=== PATIENT | female | born 1940 | race Caucasian/White ===

== ENCOUNTER 2020-05-13 14:48 | Day surgery (SDC) | payer MEDICARE, SELFPAY ==
[2020-05-13] VITALS (11 sets, daily range): BP systolic 102–142; BP diastolic 53–76; PULSE 76–112; RESP 12–20; TEMP 36.2–36.6; O2SAT 92–97; BMI 33.3
[2020-05-13 15:31] LABS: Basophils # 0.1 K/mm3 (0-0.2); Basophils % 1.1 % (0.1-2.0); Eosinophils % 0.4 % (0.1-12.0); Hematocrit 46.1 % (37.0-47.0); Hemoglobin 15.4 g/dL (12.2-16.2); Lymphocytes # 2.5 K/mm3 (0.7-4.5); Lymphocytes % 24.4 % (10-50); Mean Corpuscular HGB Conc 33.4 g/dL (31.8-35.4); Mean Corpuscular Hemoglobin 31.8 pg (27.0-31.2); Mean Corpuscular Volume 95.4 fl (81-99); Mean Platelet Volume 8.1 fl (7.4-10.4); Monocytes # 0.5 K/mm3 (0.1-1.0); Monocytes % 4.6 % (1.7-9.3); Neutrophils % 69.5 % (37.0-80.0); Platelet Count 317 K/mm3 (142-424); Red Blood Count 4.83 M/mm3 (4.20-5.40); Red Cell Distribution Width 13.5 % (11.5-17.5); White Blood Count 10.1 K/mm3 (4.8-10.8)
[2020-05-13 15:42] LABS: Chloride 99 mmol/L (98-107); Potassium 3.4 mmoL/L (3.5-5.1); Sodium 136 mmol/L (136-145)
[2020-05-13 15:44] LABS: Alanine Aminotransferase 32 U/L (12-78); Aspartate Amino Transferase 40 U/L (14-36); Blood Urea Nitrogen 22 mg/dl (7-17); Creatinine Clearance Estimated 56 mL/min (50-200); Estimated Glomerular Filt Rate 43 ml/min (>60); GFR (African American) 52 ML/MIN (>60)
[2020-05-13 15:45] LABS: Albumin Level 4.7 g/dl (3.5-5.0); Albumin/Globulin Ratio 1.6 (1.1-1.8); Alkaline Phosphatase 134 U/L (38-126); Anion Gap 15.4 mEq/L (5-15); Bilirubin,Total 0.8 mg/dl (0.2-1.3); Calcium 10.4 mg/dl (8.4-10.2); Carbon Dioxide 25 mmol/L (22.0-30.0); Glucose 120 mg/dl (74-100); Total Protein,Serum 7.7 g/dl (6.3-8.2)
[2020-05-13 15:52] LABS: Coronavirus 19 IgG Antibody Negative (Negative); Coronavirus 19 IgM Antibody Negative (Negative)
--- NOTE | 2020-05-13 16:19 | P.OP_ITS ---
Date of procedure: 05/13/20 Pre-op Diagnosis:: Thrombosed hemorrhoid Post-op Diagnosis:: Same Procedure performed:: Hemorrhoidectomy Surgeon:: Darren Padron MD SUPER[employer]:: Albaro Retana Anesthesia: LMA Estimated blood loss (mL): 25 Clinical Note:: Patient is an 79-year-old female from [facility]. She states that she has a longstanding history of essentially asymptomatic hemorrhoids for many many years. However, yesterday she states that she had symptoms consistent with prolapse and acute severe pain and swelling. She saw Dr. Solis in the office in [place]. She was scheduled for urgent outpatient surgical evaluation. She was seen in the office this afternoon. She had what appeared to be a large acute on chronic thrombosed hemorrhoid which was very tender. Due to the large size and symptomatology plan was made for hemorrhoidectomy under anesthesia. Operative findings:: She had what appeared to be large prolapsed acute on chronic thrombosed hemorrhoid. Operative note:: Patient was taken to the operating room. She was positioned in a supine position. General anesthesia was induced via LMA. She was prepped and draped in the standard surgical fashion. In the left posterior lateral location there was a very large, several centimeter, prolapsed hemorrhoidal mass. This appeared to be consistent with prolapsed hemorrhoid with acute on chronic thrombosis. Plan was made for excision as a simple hemorrhoidectomy. Local anesthetic was infiltrated in the adjacent anal Derm. Sharp elliptical incision was made of the anal Derm around the hemorrhoidal mass . Metzenbaum dissection was used to dissected the mass free. It was sent off as a specimen. Additional local anesthetic was infiltrated. Anoderm was closed with a running locking 2-0 chromic suture oversewn with simple 2-0 chromic. Additional local anesthetic was infiltrated. Gelfoam roll soaked in topical anesthesia was inserted into the anorectal vault. Absorbent dressing was applied. Condition: stable Disposition: PACU Specimens:: Hemorrhoid Complications:: None immediately apparent
--- NOTE | 2020-05-13 16:23 | P.PN_ITS ---
[facility] Anesthesia Checklist - Patient Identification Patient Identification: Arm Band, Verbal (Name & ) - Structural Data Admitted From: Home Planned Operative Procedure/s: Hemorrhoidectomy Consent for Planned Operative Procedure(s) Verified: Yes Verified Documents: Surgical Consent, History and Physical - NPO Status Verified Time NPO: 09:00 - Chart Verification Results Verified: CBC, BMP - Additional verifications Anesthesia Reactions: Yes (nausea) Hx Blood Transfusions: Yes Blood Transfusion Reaction: No - Airway Assessment C-Spine Mobility Assessed: Yes (MP 2) TMJ Mobility Assessed: Yes Dentition: Dentures-good fit (removed) - Neurological Assessment Level of Consciousness: Awake, Alert, Appropriate, Follows Commands Hx Seizures: No Numbness or tingling in extremities: No - Anesthesia Plan Anesthesia Risk discussed: Yes Anesthesia Plan: Verified ASA Class: III (Emergent) Anesthesia Type: General [facility] History I have reviewed the patient's past medical history: Yes Medical History: Reports:: Asthma, Hypertension Denies:: Cancer, Diabetes Mellitus Type 1, Diabetes Mellitus Type 2, Internal Pacemaker, MRSA, Seizures *Have you ever received a pneumonia vaccine?: Yes *Have you received a flu vaccine this season?: Yes Other Medical History: Denies: Blood Transfusion Reaction Comment:: obesity Anesthesia experience/problems:: PONV Laterality Cases: Bilateral: Tonsillectomy Other Surgeries: No: Pacemaker Amputation: No Fractures: No - *Social History Last grade of school completed: High school graduate Smoking Status: Never smoker Alcohol Intake: never Substance Use Type: denies use *Occupational Status:: retired Housing: house Household Members: family *Travel in the last 8 weeks: None Family Hx:: No significant family history
--- NOTE | 2020-05-13 16:26 | HMH.ANESI ---
[facility] Anesthesia Record Part I Intake, IV Amount: 250 Estimated blood loss (mL): 5 Urine output (mL): 0 (NM) Blood Products used (#): none Blood Pressure: 115/61 SaO2: 92 Pulse Rate: 87 Respiratory Rate: 12 Temperature: 97.6 F Patient is:: Awake, Drowsy, Stable Stable to PACU at:: 16:20
--- NOTE | 2020-05-13 18:07 | P.PN_ITS ---
[facility] Anesthesia Record Part II Discharge Time: 16:50 Destination: Surgical Day Care (OP Surgery) PACU nurse assessment reviewed?: Yes Patient Condition:: Good Anesthesia Complications:: None Swallowing reflex intact?: Yes Cyanosis?: No Blood Pressure: 109/53 Pulse Rate: 82 Temperature: 97.8 F Mental Status: Alert & Oriented Pain level:: 0 Nausea and/or vomitting:: None Intake, IV Amount: 0
== END 2020-05-13 17:20 | disposition home or self-care (01) ==
PROVIDERS: PCP Family Medicine; Visit Provider Surgery
PROC: (CPT 46930; principal; 2020-05-13 15:00)
DX: K64.5 Perianal venous thrombosis (principal); J45.909 Unspecified asthma, uncomplicated; I10 Essential (primary) hypertension; Z79.899 Other long term (current) drug therapy; Z90.89 Acquired absence of other organs
CPT/HCPCS: 46930; 80053; 85025; 86328; 88304; 96374; J2405

== ENCOUNTER → 2021-02-16 13:14 | Outpatient (CLI) | payer MEDICARE, SELFPAY | PROVIDERS: PCP Family Medicine; Visit Provider Nurse Practitioner | DX: Z20.822 Contact with and (suspected) exposure to COVID-19 (principal) | CPT/HCPCS: C9803; U0003; U0005 ==

== ENCOUNTER → 2022-05-02 14:32 | Outpatient (CLI) | payer MEDICARE, SELFPAY ==
[2022-05-02 20:25] LABS: Basophils # 0.1 K/mm3 (0-0.2); Basophils % 1.1 % (0.1-2.0); Eosinophils # 0.1 K/mm3 (0.0-0.4); Eosinophils % 0.7 % (0.1-12.0); Hematocrit 45.5 % (37.0-47.0); Hemoglobin 14.7 g/dL (12.2-16.2); Lymphocytes # 1.8 K/mm3 (0.7-4.5); Mean Corpuscular HGB Conc 32.4 g/dL (31.8-35.4); Mean Corpuscular Volume 95.9 fl (81-99); Mean Platelet Volume 9.7 fl (7.4-10.4); Monocytes # 0.5 K/mm3 (0.1-1.0); Monocytes % 6.7 % (1.7-9.3); Neutrophils # 4.8 K/mm3 (1.8-7.8); Neutrophils % 66.6 % (37.0-80.0); Platelet Count 376 K/mm3 (142-424); Red Blood Count 4.74 M/mm3 (4.20-5.40); Red Cell Distribution Width 12.8 % (11.5-17.5); White Blood Count 7.2 K/mm3 (4.8-10.8)
[2022-05-02 20:29] LABS: Alanine Aminotransferase 39 U/L (12-78); Albumin Level 4.5 g/dl (3.5-5.0); Albumin/Globulin Ratio 1.7 (1.1-1.8); Alkaline Phosphatase 182 U/L (38-126); Aspartate Amino Transferase 49 U/L (14-36); Bilirubin,Total 0.4 mg/dl (0.2-1.3); Blood Urea Nitrogen 31 mg/dl (7-17); Calcium 10.1 mg/dl (8.4-10.2); Carbon Dioxide 29 mmol/L (22.0-30.0); Chloride 101 mmol/L (98-107); Chol/HDL Ratio 4.2 (1-3.5); Cholesterol 239 mg/dl (140-200); Estimated Glomerular Filt Rate 36 ml/min (>60); GFR (African American) 43 ML/MIN (>60); Globulin 2.7 g/dL (1.3-3.2); Glucose 97 mg/dl (74-100); HDL Cholesterol 57 mg/dl (40-60); Sodium 138 mmol/L (136-145); Total Protein,Serum 7.2 g/dl (6.3-8.2); Triglycerides 279 mg/dl (30-150); VLDL Cholesterol 56 mg/dL (0-40)
[2022-05-02 20:40] LABS: Direct LDL Cholesterol 120.24 mg/dL (100-129)
[2022-05-02 20:49] LABS: Creatinine,Urine Random 189 mg/dL (Not Estab.)
[2022-05-02 20:50] LABS: Microalbumin/Creatinine Ratio 3.2
[2022-05-02 21:00] LABS: Thyroid Stimulating Hormone 2.01 uIU/mL (0.465-4.68)
== END ==
PROVIDERS: PCP Nurse Practitioner; Visit Provider Nurse Practitioner
DX: I10 Essential (primary) hypertension (principal); I49.9 Cardiac arrhythmia, unspecified
CPT/HCPCS: 80053; 80061; 82043; 82570; 84443; 85025

== ENCOUNTER → 2022-05-03 08:33 | Outpatient (CLI) | payer MEDICARE, SELFPAY ==
--- NOTE | 2022-05-03 08:45 | ECG_ITS ---
APPROVED REPORT Exam: Resting ECG HR:86 bpm ECG Measurements Heart Rate 86 AXES NC 155 P -17 QRSd 106 QRS -15 QT 378 T 21 QTc 422 Conclusion SINUS RHYTHM WITH SINUS ARRHYTHMIA NORMAL ECG UNCONFIRMED REPORT Electronically signed by : Mookie Garcia MD 05/03/2022 19:54:05
--- NOTE | 2022-05-03 08:51 | XR_ITS ---
FINAL REPORT CLINICAL HISTORY: arrhythmia FINDINGS: Two views of the chest were obtained. The heart size and pulmonary vascularity are within normal limits. The mediastinum is normal. No acute pulmonary abnormality is identified. There is no pneumothorax. There is rightward curvature of the thoracic spine. IMPRESSION: No active cardiopulmonary disease. Reviewed, Interpreted and Dictated by Darren Kamara III, MD Transcribed by Alejandra Chavez Authenticated and [facility]
== END ==
PROVIDERS: PCP Nurse Practitioner; Visit Provider Nurse Practitioner
DX: I10 Essential (primary) hypertension (principal); I49.9 Cardiac arrhythmia, unspecified
CPT/HCPCS: 71046; 93005

== ENCOUNTER → 2022-09-21 23:22 | Outpatient (CLI) | payer MEDICARE, SELFPAY | PROVIDERS: PCP Nurse Practitioner; Visit Provider Nurse Practitioner | DX: R30.0 Dysuria (principal) | CPT/HCPCS: 87086 ==

== ENCOUNTER → 2022-10-05 23:30 | Outpatient (CLI) | payer MEDICARE, SELFPAY ==
[2022-10-05 19:11] LABS: Alanine Aminotransferase 33 U/L (12-78); Albumin Level 4.2 g/dl (3.5-5.0); Albumin/Globulin Ratio 1.4 (1.1-1.8); Alkaline Phosphatase 162 U/L (38-126); Anion Gap 16.4 mEq/L (5-15); Aspartate Amino Transferase 42 U/L (14-36); Bilirubin,Total 0.3 mg/dl (0.2-1.3); Blood Urea Nitrogen 19 mg/dl (7-17); Calcium 9.4 mg/dl (8.4-10.2); Carbon Dioxide 30 mmol/L (22.0-30.0); Chloride 94 mmol/L (98-107); Estimated Glomerular Filt Rate 60 ml/min (>60); GFR (African American) 72 ML/MIN (>60); Globulin 2.9 g/dL (1.3-3.2); Glucose 104 mg/dl (74-100); Potassium 4.4 mmoL/L (3.5-5.1); Sodium 136 mmol/L (136-145); Total Protein,Serum 7.1 g/dl (6.3-8.2)
[2022-10-05 19:46] LABS: Thyroid Stimulating Hormone 2.17 uIU/mL (0.465-4.68)
[2022-10-05 19:47] LABS: Basophils # 0.1 K/mm3 (0-0.2); Eosinophils # 0.1 K/mm3 (0.0-0.4); Eosinophils % 0.8 % (0.1-12.0); Hematocrit 45.4 % (37.0-47.0); Hemoglobin 14.4 g/dL (12.2-16.2); Lymphocytes # 1.6 K/mm3 (0.7-4.5); Lymphocytes % 22.9 % (10-50); Mean Corpuscular HGB Conc 31.7 g/dL (31.8-35.4); Mean Corpuscular Hemoglobin 30.8 pg (27.0-31.2); Mean Corpuscular Volume 97.2 fl (81-99); Mean Platelet Volume 10.1 fl (7.4-10.4); Monocytes # 0.4 K/mm3 (0.1-1.0); Monocytes % 6.1 % (1.7-9.3); Neutrophils # 4.7 K/mm3 (1.8-7.8); Neutrophils % 69.2 % (37.0-80.0); Platelet Count 451 K/mm3 (142-424); Red Blood Count 4.68 M/mm3 (4.20-5.40); Red Cell Distribution Width 12.8 % (11.5-17.5); White Blood Count 6.8 K/mm3 (4.8-10.8)
[2022-10-05 20:04] LABS: Vitamin B12 656 pg/mL (239-931)
== END ==
PROVIDERS: PCP Nurse Practitioner; Visit Provider Nurse Practitioner
DX: I10 Essential (primary) hypertension (principal); R26.89 Other abnormalities of gait and mobility; R30.0 Dysuria; N30.01 Acute cystitis with hematuria
CPT/HCPCS: 80053; 82607; 84443; 85025; 87086

== ENCOUNTER → 2022-10-18 10:12 | Outpatient (CLI) | payer MEDICARE, SELFPAY | PROVIDERS: PCP Nurse Practitioner; Visit Provider Nurse Practitioner | DX: R30.0 Dysuria (principal) | CPT/HCPCS: 87086 ==

== ENCOUNTER 2023-01-25 18:04 | Emergency (ER) | payer MEDICARE, SELFPAY ==
[2023-01-25 18:05] VITALS: BP 173/96; PULSE 117; RESP 18; TEMP 36.6; O2SAT 95; BMI 34.4
[2023-01-25 18:11] VITALS: BP 173/96; PULSE 109; O2SAT 97
[2023-01-25 18:31] VITALS: BP 149/80; PULSE 91; O2SAT 96
--- NOTE | 2023-01-25 19:01 | XR_ITS ---
PROCEDURE INFORMATION: Exam: XR Left Knee Exam date and time: 01/25/2023 7:02 PM Age: 82 years old Clinical indication: Injury or trauma; Fall; Laceration; Patella or knee; Left; Without foreign body; Additional info: Knee injury TECHNIQUE: Imaging protocol: Radiologic exam of the left knee. Views: 3 views. COMPARISON: No relevant prior studies available. FINDINGS: Bones/joints: Tricompartmental joint space narrowing and osteophyte formation. No acute fracture or dislocation. Tibial spine peaking. Soft tissues: Soft tissue swelling anterior calf. Small soft tissue defect in the prepatellar region. IMPRESSION: No acute fracture or dislocation.
--- NOTE | 2023-01-25 19:03 | HMH.EDGENADL ---
Discharge Plan Disposition Patient Disposition: Home, Self-Care Prescriptions Prescriptions: No Action albuterol sulfate 90 mcg/actuation HFA aerosol inhaler 90 mcg INHALATION NEEDED PRN (Reason: COPD) montelukast 10 mg tablet See Rx Instructions .ROUTE .COMPLEX Qty: 90 3RF Dose Instruction: TAKE 1 TABLET BY MOUTH DAILY FOR ALLERGIES SYMPTOMS Rx Instructions: TAKE 1 TABLET BY MOUTH DAILY FOR ALLERGIES SYMPTOMS metolazone 5 mg tablet See Rx Instructions .ROUTE .COMPLEX Qty: 90 3RF Dose Instruction: TAKE 1 TABLET BY MOUTH DAILY FOR EDEMA Rx Instructions: TAKE 1 TABLET BY MOUTH DAILY FOR EDEMA fosinopril 20 mg tablet See Rx Instructions .ROUTE .COMPLEX Qty: 90 3RF Dose Instruction: TAKE 1 TABLET BY MOUTH DAILY FOR HIGH BLOOD PRESSURE Rx Instructions: TAKE 1 TABLET BY MOUTH DAILY FOR HIGH BLOOD PRESSURE Referrals Follow up/Referrals: Elissa Rivas APRN [Primary Care Provider] - See instructions Activity Restrictions/Add. Instructions Additional Instructions/Restrictions: Have your sutures removed in 7 to 10 days return with any spreading redness or pus coming from the wound or other concerns. Clinical Impressions Clinical Impression: Laceration of knee, left, Contusion of knee, left Instructions Patient Instructions: DI for Laceration Repair Discharge ED Provider: Zeinab Harry General Adult HPI General Chief complaint: Wound/Laceration Stated complaint: AO fall 01/25, left knee pain Time Seen by Provider: 01/25/23 18:54 Mode of Arrival: Wheelchair Source of Information: Patient Limitations: No Limitations Description of Symptoms (Recalled from ER Triage Doc. by RN): Patient reports slipping on wet grass at 12 noon today and falling onto her left knee causing a laceration. Denies LOC. History of Present Illness HPI narrative: 82-year-old female here with a left knee laceration and knee injury after a mechanical fall earlier today. Denies any injuries elsewhere she has been able to walk on it without difficulty with a full range of motion tetanus is not up-to-date. No injuries elsewhere. Related Data Home Medications Medication Instructions Recorded Confirmed albuterol sulfate 90 mcg/actuation 90 mcg inhalation NEEDED PRN 05/13/20 10/28/22 aerosol inhaler COPD Previous Rx's Medication Instructions Recorded montelukast 10 mg tablet See Rx Instructions .Route 10/18/22 .COMPLEX #90 tabs fosinopril 20 mg tablet See Rx Instructions .Route 01/17/23 .COMPLEX #90 tabs metolazone 5 mg tablet See Rx Instructions .Route 01/17/23 .COMPLEX #90 tabs Allergies Allergy/AdvReac Type Severity Reaction Status Date / Time penicillin G [PENICILLIN G] Allergy Mild Verified 10/28/22 09:42 nitrofurantoin Allergy Unknown Verified 10/28/22 09:42 [From Macrobid] [facility] Disclaimer: The information contained in this section may have been updated after the patient was seen, as this information can be updated by other users. Medical History Allergic rhinitis Bilateral lower extremity edema Essential hypertension Loss of balance Social History Smoking Status: Never smoker alcohol intake: never substance use type: denies use current occupational status: retired Travel in the last 8 weeks: Inside the [place] household members: family housing: house current occupational exposures/hazards: No caffeine: Yes ROS Obtained: Yes All systems reviewed & no additional complaints except as documented Physical Exam General General appearance: alert Respiratory Respiratory exam: Present normal lung sounds bilaterally Cardiovascular Cardiovascular exam: Present regular rate; Absent tachycardia Extremities Exam Extremities exam: Present other (5 cm horizontally oriented laceration over the left anterior knee no
[2023-01-25 20:38] VITALS: BP 144/85; PULSE 89; RESP 18; TEMP 36.7
== END 2023-01-25 20:15 | disposition home or self-care (01) ==
PROVIDERS: Emergency Provider Student in an Organized Health Care Education/Training Program; PCP Nurse Practitioner
DX: S81.012A Laceration without foreign body, left knee, initial encounter (principal); Z23 Encounter for immunization; W19.XXXA Unspecified fall, initial encounter
CPT/HCPCS: 73562; 90715; 96372; 99283

== ENCOUNTER → 2023-01-30 14:14 | Outpatient (CLI) | payer MEDICARE, SELFPAY ==
--- NOTE | 2023-01-30 14:15 | CA_ITS ---
FINAL REPORT TECHNIQUE: Ultrasound images of the deep venous system were obtained from the left groin to the calf veins. CLINICAL HISTORY: LLE edema, ecchymosis, trauma due to fall at home,PT HAS SUTURES ACROSS LT KNEE FINDINGS: The deep venous system is normally compressible. Normal flow is identified. A moderate-sized popliteal cyst is seen. There is a complex cystic mass in the proximal lateral left calf measuring 5.5 x 4.7 cm which may represent a hematoma. IMPRESSION: No evidence of left lower extremity DVT. Complex cystic mass in the proximal lateral calf which may represent a hematoma. Reviewed, Interpreted and Dictated by Darren Kamara III, MD Transcribed by Teodora Pardo Authenticated and [facility]
== END ==
PROVIDERS: PCP Nurse Practitioner; Visit Provider Nurse Practitioner
DX: R60.0 Localized edema (principal)
CPT/HCPCS: 93971

== ENCOUNTER → 2023-02-13 15:00 | Outpatient (CLI) | payer MEDICARE, SELFPAY | PROVIDERS: PCP Nurse Practitioner; Visit Provider Nurse Practitioner | DX: R30.0 Dysuria (principal) | CPT/HCPCS: 87086 ==

== ENCOUNTER 2023-08-02 19:45 | Outpatient (CLI) | payer MEDICARE, SELFPAY | END 2023-08-02 23:59 | LOC: LAB.DROPOF 19:46 | PROVIDERS: PCP Nurse Practitioner; Visit Provider Nurse Practitioner | DX: L02.414 Cutaneous abscess of left upper limb (principal) | CPT/HCPCS: 87070; 87205 ==

== ENCOUNTER 2024-02-27 10:30 | Outpatient (CLI) | payer MEDICARE, SELFPAY ==
[2024-02-27 19:22] LABS: Creatinine,Urine Random 70 mg/dL (Not Estab.)
[2024-02-27 19:28] LABS: Alanine Aminotransferase 28 U/L (12-78); Albumin Level 4.4 g/dl (3.5-5.0); Albumin/Globulin Ratio 1.5 (1.1-1.8); Alkaline Phosphatase 121 U/L (38-126); Anion Gap 9.7 mEq/L (5-15); Aspartate Amino Transferase 39 U/L (14-36); Bilirubin,Total 0.8 mg/dl (0.2-1.3); Blood Urea Nitrogen 21 mg/dl (7-17); Calcium 9.9 mg/dl (8.4-10.2); Carbon Dioxide 30 mmol/L (22.0-30.0); Chloride 98 mmol/L (98-107); Estimated Glomerular Filt Rate 53 ml/min (>60); GFR (African American) 64 ML/MIN (>60); Glucose 106 mg/dl (74-100); Potassium 3.7 mmoL/L (3.5-5.1); Sodium 134 mmol/L (136-145); Total Protein,Serum 7.4 g/dl (6.3-8.2)
[2024-02-27 19:36] LABS: Basophils # 0.1 K/mm3 (0-0.2); Basophils % 1.2 % (0.1-2.0); Eosinophils % 0.5 % (0.1-12.0); Hematocrit 48.2 % (37.0-47.0); Hemoglobin 15.6 g/dL (12.2-16.2); Lymphocytes # 1.3 K/mm3 (0.7-4.5); Lymphocytes % 21.6 % (10-50); Mean Corpuscular HGB Conc 32.4 g/dL (31.8-35.4); Mean Corpuscular Hemoglobin 30.4 pg (27.0-31.2); Mean Platelet Volume 9.7 fl (7.4-10.4); Monocytes # 0.4 K/mm3 (0.1-1.0); Monocytes % 6.2 % (1.7-9.3); Neutrophils # 4.3 K/mm3 (1.8-7.8); Neutrophils % 70.4 % (37.0-80.0); Platelet Count 285 K/mm3 (142-424); Red Blood Count 5.13 M/mm3 (4.20-5.40); Red Cell Distribution Width 13.5 % (11.5-17.5); White Blood Count 6.1 K/mm3 (4.8-10.8)
[2024-02-27 19:39] LABS: Microalbumin < 6.000 mg/L (0-16.7)
[2024-02-27 20:03] LABS: Hemoglobin A1C 5.6 % (4.0-6.0)
== END 2024-02-27 23:59 | disposition home or self-care (01) ==
LOC: LAB.DROPOF 02-28 09:55
PROVIDERS: PCP Nurse Practitioner; Visit Provider Nurse Practitioner
DX: I10 Essential (primary) hypertension (principal); R73.01 Impaired fasting glucose
CPT/HCPCS: 80053; 82043; 82570; 83036; 84443; 85025

== ENCOUNTER 2024-03-14 09:23 | Outpatient (CLI) | payer MEDICARE, SELFPAY ==
--- NOTE | 2024-03-14 09:30 | CA_ITS ---
APPROVED REPORT EXAM: Comprehensive 2D, Doppler, and color-flow Echocardiogram Bag Press Operator: Toshia Frost, RCS, RVS Ht: 5 ft 7 in Wt: 220lbs BSA: 2.11 BP: 142/92 mmHg Indications: SOA, Asthma, Murmur, Abn EKG, HTN, HLD 2D Dimensions IVSd 1.10 cm F: 0.6-1.0 LVEF (Visual) 69.00 % PWd 1.10 cm F: 0.6 - 1.0 LA Volume 103.30 mL LVDd 3.22 cm F: 3.9 - 5.3 LA Volume Index [id number] mL/m2 (M/F) 16-34 LVDs 2.01 cm F: 2.2 - 3.5 Left Atrium 3.58 cm F: 2.7 - 3.8 M-Mode Dimensions LA Diam 4.52 cm (1.9-4.0) EPSs 0.57 cm TAPSE 1.98 (<1.7) LV Diastology E Decel Time 217 (160-240 msec) E/A Ratio 0.67 MED A' 13.70 cm/s LAT A' 11.60 cm/s Aortic Valve ANDREA Index 0.63 cm2/m2 AoV Peak Finesse. 304.0 (50-130 cm/s) AO Peak GR. 37.20 mmHg AO Mean GR. 18.30 (<5 mmHg) AO VTI 57.8 (18-25 cm) ANDREA (VTI) 1.35 (2.5-4.5 cm2) Mitral Valve MV A Velocity 135.0 (40-130 cm/s) E/A Ratio 0.67 MV Mean Gr. 3.70 (<2mmHg) MV PHT 60.0 ms Pulmonary Valve PV Peak Velocity 96.0 (50-150 cm/s) TX End VMAX 193.0 cm/s Tricuspid Valve TR P. Velocity 278.00 cm/s RAP Estimate 10.00 mmHg RVSP 40.90 mmHg Left Ventricle The left ventricle is normal size. The left ventricular systolic function is normal. The left ventricular ejection fraction is within the normal range. There is increased LV wall thickness. There is normal LV segmental wall motion. Transmitral Doppler flow pattern suggests impaired LV relaxation. LVEF is 55%. Right Ventricle Right ventricle is mildly dilated. The right ventricular systolic function is normal. Atria Left atrium is moderately dilated. The right atrium size is normal. There is no Doppler evidence of interatrial shunt. Aortic Valve The aortic valve is moderately thickened. Moderate aortic stenosis. Peak velocity 3.2 m/s. Mean AV gradient 20 mmHg. Max AV gradient 40 mmHg. ANDREA by continuity equation is 1.4 cm???. Trace aortic regurgitation. Mitral Valve Mild mitral annular calcification. The mitral valve leaflets are moderately thickened. No mitral stenosis. Mean MV gradient is 3 mmHg (HR 98 bpm). MVA by PHT method is 3.5 cm2. Trace mitral regurgitation. Tricuspid Valve The tricuspid valve leaflets are thin and pliable. Mild tricuspid regurgitation. RVSP is 30-35 mmHg. Pulmonic Valve The pulmonary valve is normal in structure. Mild pulmonic regurgitation. Great Vessels The aortic root is normal in size. The ascending aorta is not well-visualized. IVC is normal in size and collapses >50% with inspiration. Pericardium There is no pericardial effusion. Other Information Study Quality: Fair Conclusion Normal biventricular systolic function. Mild RV dilation. Moderate LA dilation. Moderate (peak velocity 3.2 m/s. Mean AV gradient 20 mmHg. Max AV gradient 40 mmHg. ANDREA by continuity equation is 1.4 cm???). Mild TR, mild PI. RVSP is 30-35 mmHg. Electronically signed by : Ange Miramontes MD 03/20/2024 12:49:32
--- NOTE | 2024-03-14 10:03 | XR_ITS ---
PROCEDURE INFORMATION: Exam: XR Chest Exam date and time: 03/14/2024 10:04 AM Age: 83 years old Clinical indication: Wheezing; Additional info: Wheezing R > L TECHNIQUE: Imaging protocol: Radiologic exam of the chest. Views: 2 views. Total images: 2 COMPARISON: CR XR CHEST 2V 05/03/2022 9:07 AM FINDINGS: Lungs: Atelectatic changes noted within both lung bases. No focal pneumonia. Pleural spaces: Unremarkable. No pleural effusion. No pneumothorax. Heart/Mediastinum: The heart is not enlarged. Vasculature: Mild atherosclerotic disease. Bones/joints: The thoracic spine demonstrates mild degenerative changes at multiple levels. IMPRESSION: 1. Atelectatic changes noted within both lung bases. 2. No focal pneumonia.
== END 2024-03-14 23:59 | disposition home or self-care (01) ==
LOC: RT 09:24
PROVIDERS: PCP Nurse Practitioner; Visit Provider Nurse Practitioner
DX: I51.7 Cardiomegaly (principal); R01.1 Cardiac murmur, unspecified; R60.0 Localized edema; R06.2 Wheezing
CPT/HCPCS: 71046; 93306

== ENCOUNTER 2024-04-01 12:28 | Outpatient (CLI) | payer MEDICARE, SELFPAY | END 2024-04-01 23:59 | disposition home or self-care (01) | LOC: RT 12:29 | PROVIDERS: PCP Nurse Practitioner; Visit Provider Nurse Practitioner | DX: R00.0 Tachycardia, unspecified (principal) | CPT/HCPCS: 93225; 93227 ==

== ENCOUNTER 2024-04-22 11:23 | Outpatient (CLI) | payer MEDICARE, SELFPAY | END 2024-04-22 23:59 | disposition home or self-care (01) | LOC: RT 11:24 | PROVIDERS: PCP Nurse Practitioner; Visit Provider Physician Assistant | DX: I48.0 Paroxysmal atrial fibrillation (principal) | CPT/HCPCS: 93270 ==

== ENCOUNTER 2024-07-05 12:57 | Outpatient (CLI) | payer MEDICARE, SELFPAY ==
--- NOTE | 2024-07-05 13:00 | MR_ITS ---
FINAL REPORT TECHNIQUE: Multiplanar MR, without and with gadolinium enhancement CLINICAL HISTORY: VERTICAL DIPLOPIA COMPARISON: None FINDINGS: Diffusion sequences show no signal abnormality to indicate acute infarct. No mass, hemorrhage or edema is seen. Mild generalized atrophy is present. Major vascular flow voids are intact. No pituitary mass is identified. The optic chiasm is normal in appearance. Note is made of mild bilateral ethmoid and maxillary sinuses soft tissue thickening consistent with chronic sinusitis. Following contrast administration, no mass or abnormal enhancement is seen. IMPRESSION: Unremarkable MR evaluation the brain with contrast Mild bilateral ethmoid and maxillary sinusitis. Reviewed, Interpreted and Dictated by Wilber Morfin MD Transcribed by Radha Yates Authenticated and [facility]
[2024-07-05 13:24] LABS: Blood Urea Nitrogen 27 mg/dl (7-17); Estimated Glomerular Filt Rate 43 ml/min (>60); GFR (African American) 52 ML/MIN (>60)
== END 2024-07-05 23:59 | disposition home or self-care (01) ==
LOC: RAD 12:57
PROVIDERS: PCP Nurse Practitioner; Visit Provider Optometrist
DX: Z01.812 Encounter for preprocedural laboratory examination (principal); H53.2 Diplopia; H50.22 Vertical strabismus, left eye
CPT/HCPCS: 36415; 70551; 82565; 84520

== ENCOUNTER 2024-08-20 12:15 | Outpatient (CLI) | payer MEDICARE, SELFPAY ==
[2024-08-20 18:43] LABS: Basophils # 0.1 K/mm3 (0-0.2); Basophils % 0.9 % (0.1-2.0); Eosinophils % 0.6 % (0.1-12.0); Hematocrit 43.5 % (37.0-47.0); Hemoglobin 14.4 g/dL (12.2-16.2); Lymphocytes # 1.3 K/mm3 (0.7-4.5); Lymphocytes % 18.9 % (10-50); Mean Corpuscular HGB Conc 33.1 g/dL (31.8-35.4); Mean Corpuscular Volume 93.8 fl (81-99); Mean Platelet Volume 11.2 fl (7.4-10.4); Monocytes # 0.5 K/mm3 (0.1-1.0); Monocytes % 6.5 % (1.7-9.3); Neutrophils % 72.8 % (37.0-80.0); Platelet Count 319 K/mm3 (142-424); Red Blood Count 4.64 M/mm3 (4.20-5.40); Red Cell Distribution Width 12.5 % (11.5-17.5); White Blood Count 6.9 K/mm3 (4.8-10.8)
[2024-08-20 20:24] LABS: Chloride 101 mmol/L (98-107); Potassium 4.4 mmoL/L (3.5-5.1); Sodium 137 mmol/L (136-145)
[2024-08-20 20:26] LABS: Blood Urea Nitrogen 26 mg/dl (7-17)
[2024-08-20 20:27] LABS: Alanine Aminotransferase 34 U/L (12-78); Albumin/Globulin Ratio 1.4 (1.1-1.8); Alkaline Phosphatase 140 U/L (38-126); Anion Gap 10.4 mEq/L (5-15); Aspartate Amino Transferase 48 U/L (14-36); Bilirubin,Total 0.8 mg/dl (0.2-1.3); Calcium 9.7 mg/dl (8.4-10.2); Carbon Dioxide 30 mmol/L (22.0-30.0); Estimated Glomerular Filt Rate 53 ml/min (>60); GFR (African American) 64 ML/MIN (>60); Globulin 2.9 g/dL (1.3-3.2); Glucose 103 mg/dl (74-100); Total Protein,Serum 6.9 g/dl (6.3-8.2)
== END 2024-08-20 23:59 | disposition home or self-care (01) ==
LOC: LAB.DROPOF 08-21 13:53
PROVIDERS: PCP Family Medicine; Visit Provider Family Medicine
DX: I10 Essential (primary) hypertension (principal); I35.0 Nonrheumatic aortic (valve) stenosis; R01.1 Cardiac murmur, unspecified; J45.909 Unspecified asthma, uncomplicated; Z79.01 Long term (current) use of anticoagulants; Z86.79 Personal history of other diseases of the circulatory system
CPT/HCPCS: 80053; 85025

== ENCOUNTER 2024-11-26 14:55 | Outpatient (CLI) | payer MEDICARE, SELFPAY ==
[2024-11-26 20:31] LABS: Anion Gap 16.1 mEq/L (5-15); Blood Urea Nitrogen 26 mg/dl (7-17); Calcium 9.6 mg/dl (8.4-10.2); Carbon Dioxide 29 mmol/L (22.0-30.0); Chloride 95 mmol/L (98-107); Creatinine,Serum 1.10 mg/dl (0.52-1.04); Estimated Glomerular Filt Rate 47 ml/min (>60); GFR (African American) 57 ML/MIN (>60); Glucose 98 mg/dl (74-100); Magnesium 1.3 mg/dl (1.6-2.3); Potassium 4.1 mmoL/L (3.5-5.1); Sodium 136 mmol/L (136-145)
--- OUTSIDE RECORDS SUMMARY | 2024-11-27 10:26 | XMS_ITS | Clinical Summary ---
Author Organization [facility] [place] [address] Care Team Providers Care Desktop Analyst Name Role Phone Unavailable Primary Care Provider Unavailabl e Social History Tobacco Use Types Packs/Day Years Used Date Smoking Tobacco: Never Assessed Comments Unknown Sex and Gender Information Value Date Recorded Sex Assigned at Not on file Legal Sex Female 3:17 AM EDT Gender Identity Not on file Sexual Orientation Not on file Plan of Treatment Health Maintenance Due Date Last Done Comments Annual Wellness Exam 1941 DTaP/TDaP/Td (1 - Tdap) 1957 Pneumococcal Vaccine 50+ (1 of 1 - PCV) 1988 Zoster (1 of 2) 1988 Bone Density Screening 08/08/2003 RSV or 60+ (1 - 1-d ose 75+ series) 2013 COVID-19 Vaccine ( - 2023-2 5 season) 2024 Influenza Vaccine (#1) 2025 Hepatitis B Vaccine Aged Out No longe r eligible based on patient's age to complete this topic Meningococcal B Vaccine Aged Out No l onger eligible based on patient's age to complete this topic
== END 2024-11-26 23:59 | disposition home or self-care (01) ==
LOC: LAB.DROPOF 11-27 10:21
PROVIDERS: PCP Family Medicine; Visit Provider Family Medicine
DX: I10 Essential (primary) hypertension (principal)
CPT/HCPCS: 80048; 83735

== ENCOUNTER 2025-01-10 10:31 | Outpatient (CLI) | payer MEDICARE, SELFPAY ==
--- OUTSIDE RECORDS SUMMARY | 2025-01-10 10:33 | XMS_ITS | Clinical Summary ---
Author Organization [employer] [facility] Address [address] [place] [phone] Phone Care Team Providers Care Floor Inspector Name Role Phone Unavailable Unavailable Conditions or Problems No information available. Medications No information available. Medications Administered No information available. Allergies, Adverse Reactions, Alerts No information available. Results No information available. Plan of Care No information available. Procedures No information available. Vital Signs No information available. Immunizations No information available. Advance Directives No information available.
--- OUTSIDE RECORDS SUMMARY | 2025-01-10 10:34 | XMS_ITS | Clinical Summary ---
Author Organization [facility] [place] [address] Care Team Providers Care Reserve Operator Name Role Phone Unavailable Primary Care Provider [...]
--- NOTE | 2025-01-10 11:00 | CA_ITS ---
FINAL REPORT TECHNIQUE: Easton scale, color and spectral doppler images of the bilateral carotid arteries were obtained. CLINICAL HISTORY: JAVIER,HTN COMPARISON: None FINDINGS: Peak systolic velocity in the right internal carotid artery is 160 cm/sec. The internal carotid to common carotid artery ratio is 2.54. There is no significant carotid artery stenosis and moderate to severe plaque formation. The right vertebral artery is normal in direction. Peak systolic velocity in the left internal carotid artery is 76 cm/sec. The internal carotid to common carotid artery ratio is 1.13. There is no significant carotid artery stenosis and moderate to severe plaque formation. The left vertebral artery is normal in direction. IMPRESSION: No ultrasound evidence of hemodynamically significant carotid artery stenosis, however there is moderate to severe plaque formation in the carotid arteries bilaterally. Normal peak systolic velocities and normal internal to common carotid artery ratios bilaterally. Reviewed, Interpreted and Dictated by Ko Weems MD Transcribed by Radha Yates Authenticated and [facility]
== END 2025-01-10 23:59 | disposition home or self-care (01) ==
LOC: RT 10:32
PROVIDERS: PCP Family Medicine; Visit Provider Family Medicine
DX: I65.23 Occlusion and stenosis of bilateral carotid arteries (principal); I10 Essential (primary) hypertension
CPT/HCPCS: 93880